=== PATIENT | male | born 1955 | race Caucasian/White ===

== ENCOUNTER 2019-11-03 15:28 | Outpatient (RCR) | payer BC, SELFPAY ==
[2019-11-03 16:21] LABS: Alanine Aminotransferase 25 U/L (4-50); Albumin Level 3.8 g/dL (3.5-5.1); Alkaline Phosphatase 150 U/L (38-126); Aspartate Amino Transferase 26 U/L (17-59); Bilirubin,Total 0.3 mg/dL (0.2-1.3); Blood Urea Nitrogen 47 mg/dL (9-20); Calcium 9.2 mg/dL (8.4-10.2); Carbon Dioxide 19 mmol/L (22-30); Chloride 103 mmol/L (98-107); Estimated Glomerular Filt Rate 34; Glucose 95 mg/dL (75-110); HDL Direct 25 mg/dL; Magnesium 2.2 mg/dL (1.6-2.3); Phosphorus 3.9 mg/dL (2.5-4.5); Potassium 3.9 mmol/L (3.4-5.0); Sodium 138 mmol/L (137-145)
[2019-11-03 16:27] LABS: Creatinine Urine 49.2 mg/dL; Total Protein Urine Random 28 mg/dL
[2019-11-03 16:32] LABS: LDL Cholesterol Direct 62 mg/dL; Transferrin 175 mg/dL (206-381)
[2019-11-03 17:29] LABS: Iron 43 ug/dL (49-181); Percent Iron Saturation 17 % (20-50)
== END 2020-02-01 23:59 | disposition home or self-care (01) ==
LOC: ANHLAB 15:28
DX: N18.9 Chronic kidney disease, unspecified (principal); D63.1 Anemia in chronic kidney disease; D89.9 Disorder involving the immune mechanism, unspecified; Z94.0 Kidney transplant status
CPT/HCPCS: 36415; 80053; 82570; 82728; 83540; 83550; 83718; 83721; 83735; 84100; 84156; 84466; 84550

== ENCOUNTER 2020-02-15 16:56 | Emergency (ER) | payer BC, SELFPAY ==
[2020-02-15 17:12] VITALS: BP 124/66; PULSE 84; RESP 18; TEMP 37.1; O2SAT 98
--- NOTE | 2020-02-15 17:33 | ED.LOWEXIN ---
HPI - Extremity Injury (Lower) General Chief Complaint: Extremity Injury, Lower Stated Complaint: swelling right leg Time Seen by Provider: 02/15/20 17:35 Source: patient and RN notes reviewed Mode of arrival: ambulatory Limitations: no limitations History of Present Illness HPI Narrative: 61-year-old male presents with concern for med [place] refill. Reports he has been on Lasix for lower leg edema, [place] and has not been able to find a doctor to refill his medications. Reports he has been out of his Lasix for approximately 2 days. Reports lower leg edema, worse on the right. Reports this is a typical pattern for his edema. Denies warmth, redness, tenderness, claudication MD complaint: other (Lower leg edema) Related Data Home Medications Medication Instructions Recorded Confirmed Dhea Tablet 50 mg PO DAILY 02/15/20 acetaminophen [Tylenol Extra 100 mg PO BID 02/15/20 02/15/20 Strength] bupropion HCl 300 mg PO QAM 02/15/20 02/15/20 clomiphene citrate 25 mg DAILY 02/15/20 02/15/20 cyproheptadine 4 mg PO TID 02/15/20 02/15/20 doxycycline hyclate 100 mg PO BID 02/15/20 02/15/20 ferrous sulfate 324 mg PO TID 02/15/20 02/15/20 finasteride 5 mg PO DAILY 02/15/20 02/15/20 furosemide [Lasix] 40 mg PO DAILY 02/15/20 02/15/20 gabapentin [Neurontin] 600 mg PO BID 02/15/20 02/15/20 lamotrigine [Lamictal] 300 mg PO DAILY 02/15/20 02/15/20 loperamide 2 mg PO TID 02/15/20 02/15/20 mirtazapine [Remeron] 22.5 mg PO DAILY 02/15/20 02/15/20 multivitamin 1 tablet PO DAILY 02/15/20 02/15/20 mycophenolate sodium [Myfortic] 540 mg PO TID 02/15/20 02/15/20 omega 0-qfh-xie-fish oil [Fish Oil] 1 cap PO BID 02/15/20 02/15/20 omeprazole magnesium [Prilosec OTC] 40 mg PO DAILY 02/15/20 02/15/20 ondansetron HCl [Zofran] 8 mg PO TID 02/15/20 02/15/20 potassium chloride 20 meq PO DAILY 02/15/20 02/15/20 prednisone 10 mg PO DAILY 02/15/20 02/15/20 rivaroxaban [Xarelto] 20 mg PO DAILY 02/15/20 02/15/20 sulfamethoxazole-trimethoprim 1 tablet PO 3XW 02/15/20 02/15/20 tamsulosin 0.4 mg PO DAILY 02/15/20 02/15/20 vitamin B complex [B 1 tablet PO DAILY 02/15/20 02/15/20 Complex-Vitamin B12] Allergies Allergy/AdvReac Type Severity Reaction Status Date / Time No Known Allergies Allergy Verified 02/15/20 17:22 Review of Systems Review of Systems: Narrative: CONSTITUTIONAL: Denies malaise, chills, sweats, or fever. CARDIOVASCULAR: Denies chest pain, palpitations. Bilateral lower leg edema, worse on the right RESPIRATORY: Denies cough or dyspnea. SKIN: Denies redness, tenderness, warmth MUSCULOSKELETAL: Denies myalgia. NEUROLOGIC: Denies numbness, weaknessn. All systems reviewed & are unremarkable except as noted in HPI and below PMFSH Social History Social History Gender identity (if verbalized by the patient): Male Comments At time of signature, agree with nursing past medical, surgical, social and family history. There is no relevant family history pertinent to the presenting complaint Exam Narrative: Exam Narrative: GENERAL: Well-appearing, well-nourished, and in no acute distress. HEAD: Normocephalic EYES: PERRLA, conjunctivae clear ENT: Mucous membranes moist. NECK: Supple. CHEST: No respiratory distress. Clear to auscultation. No bony deformities, no asymmetry. Speaks in full sentences. HEART: Regular rate and rhythm. No murmur heard. Normal peripheral pulses. EXTREMITIES: Normal range of motion.Normal strength and sensation. Bilateral nonpitting dependent edema to the lower legs, right greater than left. Right leg has no tenderness, warmth, erythema SKIN: Warm, dry, no rash. NEURO: Alert and oriented x3. PSYCH: Normal mood and affect Course Course Emergency Course: Patient limited diagnostic capability at [facility], option to transfer to emergency department for further work-up of swelling. Patient denies at this time. Patient understand reasons to go the emergency department. Patient unders
== END 2020-02-15 17:50 | disposition home or self-care (01) ==
PROVIDERS: Emergency Provider Nurse Practitioner
DX: R60.0 Localized edema (principal)
CPT/HCPCS: 99211; G0463

== ENCOUNTER 2020-03-21 17:25 | Emergency (ER) | payer BC, SELFPAY ==
[2020-03-21 17:56] VITALS: BP 117/81; PULSE 79; RESP 16; TEMP 37.2; O2SAT 99
--- NOTE | 2020-03-21 18:39 | ED.GENADULT ---
HPI - General Adult General Chief complaint: Recheck/Abnormal Lab/Rx Stated complaint: Swelling Lower Leg Time Seen by Provider: 03/21/20 18:39 Source: patient and RN notes reviewed Mode of arrival: wheelchair Limitations: no limitations History of Present Illness HPI narrative: 64-year-old male presents with complains of bilateral lower extremities swelling for the past 3 days. No treatment in the last 72 hours, due to being out of his routine Lasix for the past 3 days. History of poor circulation, chronic BLE swelling, DVT ,and Kidney transplant. Symptoms started in the am of 01/05/20 and increased throguhout the day and worse this am. No known injury. No radiation of pain. No numbness or tingling, drainage, or bleeding. No loss of mobility. Exacerbating factor consist of bearing weight. No fever or chills. Denies chest pain, dyspnea, headache, recent long car rides. Remains active. The patient reports he have not been diagnosed with COVID-19. The patient reports he is not waiting for the results of a COVID-19 lab test. The patient reports he do not have fever, chills, weakness, fatigue, myalgia, or facial swelling. The patient reports he do not have a new or worsening cough or shortness of breath. Denies chest pain. The patient reports he do not have any rhinorrhea, congestion, sore throat, nausea, vomiting, abdominal pain, and diarrhea. Tolerating po intake well. Denies recent traveling. Denies concerns for COVID-19 or exposures been home with limited outdoor exposure except for essential household needs, work, and return home. At this time, patient is not suspected of having COVID-19. Some parts of this dictation were generated by voice recognition software and may contain typographical and/or grammatical inaccuracies. Related Data Home Medications Medication Instructions Recorded Confirmed Dhea Tablet 50 mg PO DAILY 02/15/20 acetaminophen [Tylenol Extra 100 mg PO BID 02/15/20 02/15/20 Strength] bupropion HCl 300 mg PO QAM 02/15/20 02/15/20 clomiphene citrate 25 mg DAILY 02/15/20 02/15/20 doxycycline hyclate 100 mg PO BID 02/15/20 02/15/20 ferrous sulfate 324 mg PO TID 02/15/20 02/15/20 finasteride 5 mg PO DAILY 02/15/20 02/15/20 gabapentin [Neurontin] 600 mg PO BID 02/15/20 02/15/20 lamotrigine [Lamictal] 300 mg PO DAILY 02/15/20 02/15/20 loperamide 2 mg PO TID 02/15/20 02/15/20 multivitamin 1 tablet PO DAILY 02/15/20 02/15/20 omega 8-hdx-wga-fish oil [Fish Oil] 1 cap PO BID 02/15/20 02/15/20 omeprazole magnesium [Prilosec OTC] 40 mg PO DAILY 02/15/20 02/15/20 potassium chloride 20 meq PO DAILY 02/15/20 02/15/20 prednisone 10 mg PO DAILY 02/15/20 02/15/20 rivaroxaban [Xarelto] 20 mg PO DAILY 02/15/20 02/15/20 sulfamethoxazole-trimethoprim 1 tablet PO 3XW 02/15/20 02/15/20 tamsulosin 0.4 mg PO DAILY 02/15/20 02/15/20 vitamin B complex [B 1 tablet PO DAILY 02/15/20 02/15/20 Complex-Vitamin B12] cyproheptadine 03/21/20 gabapentin 03/21/20 mycophenolate sodium PO 03/21/20 quetiapine 03/21/20 Allergies Allergy/AdvReac Type Severity Reaction Status Date / Time No Known Allergies Allergy Verified 02/15/20 17:22 Review of Systems Review of Systems: Narrative: CONSTITUTIONAL: Denies fever, chills, sweats. EYES: Denies visual changes, redness, discharge. ENT: Denies rhinorrhea, congestion, sore throat, otalgia. CARDIOVASCULAR: Denies chest pain, palpitations. Complaints of bilateral lower extremities edema. Needs Lasix refilled. RESPIRATORY: Denies dyspnea, wheezing, cough. GASTROINTESTINAL: Denies abdominal pain, nausea, vomiting, diarrhea. GENITOURINARY: Denies dysuria, hematuria, abnormal discharge. SKIN: Denies rash or itching. MUSCULOSKELETAL: Denies acute back pain, joint pain, or myalgia. NEUROLOGIC: Denies numbness or focal weakness. PSYCHIATRIC: Denies anxiety or depression. All other systems reviewed & are unremarkable except as noted in HPI and below. [facility] Past Medical History Medi
== END 2020-03-21 19:04 | disposition home or self-care (01) ==
PROVIDERS: Emergency Provider Nurse Practitioner Family
DX: M79.89 Other specified soft tissue disorders (principal); F32.9 Major depressive disorder, single episode, unspecified; Z86.718 Personal history of other venous thrombosis and embolism; I73.9 Peripheral vascular disease, unspecified; Q61.3 Polycystic kidney, unspecified; Z94.0 Kidney transplant status
CPT/HCPCS: 99211; G0463

== ENCOUNTER 2020-04-25 18:06 | Emergency (ER) | payer BC, SELFPAY ==
[2020-04-25 18:16] VITALS: BP 135/69; PULSE 71; RESP 18; TEMP 37.1; O2SAT 100
--- NOTE | 2020-04-25 18:34 | ED.GENADULT ---
HPI - General Adult General Chief complaint: Unspecified Stated complaint: refill medication Time Seen by Provider: 04/25/20 18:34 Source: patient Mode of arrival: ambulatory Limitations: no limitations History of Present Illness HPI narrative: William Kee is a 64 uo male with a PMH of polycystic kidney disease, chronic anticoagulation, major depression, comes for a refill on his Lasix. He has a doctor's appointment this next week but he has run out of his Lasix is having some swelling in his ankles. patient is taking his Xarelto other medications Related Data Home Medications Medication Instructions Recorded Confirmed furosemide [Lasix] 40 mg PO DAILY 04/25/20 04/25/20 rivaroxaban [Xarelto] 20 mg PO DAILY 04/25/20 04/25/20 Allergies Allergy/AdvReac Type Severity Reaction Status Date / Time No Known Allergies Allergy Verified 04/25/20 18:19 Review of Systems Review of Systems: Narrative: CONSTITUTIONAL: Denies fever, chills, sweats. EYES: Denies visual changes, redness, discharge. ENT: Denies rhinorrhea, congestion, sore throat, otalgia. CARDIOVASCULAR: Denies chest pain, palpitations, edema. RESPIRATORY: Denies dyspnea, wheezing, cough GASTROINTESTINAL: Denies abdominal pain, nausea, vomiting, diarrhea. GENITOURINARY: Denies dysuria, hematuria, abnormal discharge SKIN: Denies rash or itching. NEUROLOGIC: Denies numbness, or focal weakness. PSYCHIATRIC: Denies anxiety or depression. Patient needs refill PMFSH Past Medical History Medical History Depression Dvt femoral (deep venous thrombosis) Hip fracture Polycystic kidney disease PVD (peripheral vascular disease) Swelling of both lower extremities Surgical History Surgical History History of hip surgery LT Kidney transplant recipient Family History Family History Father Throat cancer Mother Polycystic kidney disease Pulmonary embolism Sibling Pulmonary embolism Social History Social History Smoking status: Never smoker Alcohol intake: never Substance use: never Additional occupation/education comments: [employer] Gender identity (if verbalized by the patient): Male Comments At time of signature, I agree with nursing past medical, surgical, social and family history. There is no relevant family history pertinent to the presenting complaint. Exam Narrative: Exam Narrative: GENERAL: This is a well-nourished, well-developed patient, in no distress. HEAD: normocephalic, atraumatic. EYES:Sclera clear/white. Vision is grossly intact. EARS: External ears normal, . Hearing grossly intact. NOSE: External nose normal without nasal discharge, nares without redness, no rhinorrhea. THROAT: Mucous membranes moist, NECK: Neck supple, non-tender CARDIOVASCULAR: Regular rate and rhythm without murmurs, gallops, or rubs. RESPIRATORY: Clear to auscultation. Breath sounds equal bilaterally. No wheezes, rales, or rhonchi. GASTROINTESTINAL: Abdomen soft, SKIN: warm, intact with no suspicious lesions or rash, good texture and turgor. NEURO: awake, alert, and oriented to person, place and time. There were no obvious focal neurologic abnormalities. Steady gait EXTREMITIES: Normal range of motion. BACK: Nontender without deformity Course Course Emergency Course: Refill for furosemide 40 mg 1 daily -month supply Vital Signs Vital signs: Vital Signs Temperature 98.8 F 04/25/20 18:16 Pulse Rate 71 04/25/20 18:16 Respiratory Rate 18 04/25/20 18:16 Blood Pressure 135/69 04/25/20 18:16 Pulse Oximetry 100 04/25/20 18:16 Temperature 98.8 F 04/25/20 18:16 Pulse Rate 71 04/25/20 18:16 Respiratory Rate 18 04/25/20 18:16 Blood Pressure 135/69 04/25/20 18:16 Pul
== END 2020-04-25 18:52 | disposition home or self-care (01) ==
PROVIDERS: Emergency Provider Nurse Practitioner
DX: Z76.0 Encounter for issue of repeat prescription (principal); I73.9 Peripheral vascular disease, unspecified; Z94.0 Kidney transplant status; Z86.718 Personal history of other venous thrombosis and embolism; Z79.01 Long term (current) use of anticoagulants
CPT/HCPCS: 99211; G0463

== ENCOUNTER 2020-05-25 09:19 | Outpatient (RCR) | payer BC, SELFPAY ==
[2020-03-13 18:29] LABS: Hematocrit 35.4 % (42.0-52.0); Mean Corpuscular HGB Conc 31.1 g/dl (32-36); Mean Corpuscular Hemoglobin 28.9 pg (26-34); Mean Corpuscular Volume 92.9 fl (80-100); Mean Platelet Volume 9.2 fl (7.4-10.4); Platelet Count Result 129 k/mm3 (150-375); Red Blood Count 3.81 M/mm3 (4.6-6.20); White Blood Count 7.2 K/mm3 (4.5-10.0)
[2020-03-13 18:37] LABS: Creatinine Urine 71.5 mg/dL; Total Protein Urine Random 22 mg/dL
[2020-03-13 18:41] LABS: Alanine Aminotransferase 19 U/L (4-50); Albumin Level 3.8 g/dL (3.5-5.1); Alkaline Phosphatase 173 U/L (38-126); Aspartate Amino Transferase 22 U/L (17-59); Bilirubin,Total 0.3 mg/dL (0.2-1.3); Blood Urea Nitrogen 37 mg/dL (9-20); Calcium 8.8 mg/dL (8.4-10.2); Carbon Dioxide 18 mmol/L (22-30); Chloride 107 mmol/L (98-107); Cholesterol 96 mg/dL (0-200); Estimated Glomerular Filt Rate 41; Glucose 93 mg/dL (75-110); HDL Direct 23 mg/dL; Magnesium 1.8 mg/dL (1.6-2.3); Phosphorus 4.2 mg/dL (2.5-4.5); Potassium 3.7 mmol/L (3.4-5.0); Sodium 137 mmol/L (137-145); Triglycerides 123 mg/dL (<150); Uric Acid 10.8 mg/dL (3.5-8.5)
[2020-03-13 18:52] LABS: LDL Cholesterol Direct 47 mg/dL; Transferrin 150 mg/dL (206-381)
[2020-03-13 19:25] LABS: Iron 41 ug/dL (49-181)
[2020-03-13 19:34] LABS: Percent Iron Saturation 19 % (20-50)
[2020-04-15 10:47] LABS: Creatinine Urine 38.3 mg/dL; Total Protein Urine Random 24 mg/dL
[2020-04-15 10:52] LABS: Creatinine 24 Hour Urine 0.8 gm/24 (1.0-2.0); Total Protein Urine 24 Hr 528 MG/DAY (28-141); Total Volume 24 Hour Urine 2200 ml
[2020-05-25 10:30] LABS: Hematocrit 37.7 % (42.0-52.0); Mean Corpuscular HGB Conc 31.8 g/dl (32-36); Mean Corpuscular Hemoglobin 29.9 pg (26-34); Mean Corpuscular Volume 93.8 fl (80-100); Mean Platelet Volume 9.3 fl (7.4-10.4); Platelet Count Result 130 k/mm3 (150-375); Red Blood Count 4.02 M/mm3 (4.6-6.20); Red Cell Distribution Width 14.7 % (11.5-14.5); White Blood Count 8.4 K/mm3 (4.5-10.0)
[2020-05-25 10:46] LABS: Alanine Aminotransferase 21 U/L (4-50); Albumin Level 3.6 g/dL (3.5-5.1); Alkaline Phosphatase 144 U/L (38-126); Anion Gap 10 mmol/L (8-16); Aspartate Amino Transferase 22 U/L (17-59); Bilirubin,Total 0.2 mg/dL (0.2-1.3); Blood Urea Nitrogen 42 mg/dL (9-20); Calcium 8.8 mg/dL (8.4-10.2); Carbon Dioxide 23 mmol/L (22-30); Chloride 108 mmol/L (98-107); Estimated Glomerular Filt Rate 38; Glucose 79 mg/dL (75-110); Potassium 3.7 mmol/L (3.4-5.0); Sodium 141 mmol/L (137-145)
== END 2020-06-11 23:59 | disposition home or self-care (01) ==
LOC: ANHLAB 09:19
DX: D63.1 Anemia in chronic kidney disease (principal); N18.9 Chronic kidney disease, unspecified; R79.9 Abnormal finding of blood chemistry, unspecified; D89.9 Disorder involving the immune mechanism, unspecified; Z94.0 Kidney transplant status; Z48.298 Encounter for aftercare following other organ transplant
CPT/HCPCS: 36415; 80053; 80061; 81050; 82570; 82728; 83540; 83550; 83735; 84100; 84156; 84466; 84550; 85027

== ENCOUNTER 2020-05-25 09:20 | Outpatient (CLI) | payer BC, SELFPAY ==
[2020-05-25 10:45] LABS: Cholesterol 121 mg/dL (0-200); HDL Direct 23 mg/dL; Triglycerides 147 mg/dL (<150)
[2020-05-25 10:56] LABS: LDL Cholesterol Direct 62 mg/dL
== END 2020-05-25 09:21 | disposition home or self-care (01) ==
DX: S42.325D Nondisplaced transverse fracture of shaft of humerus, left arm, subsequent encounter for fracture with routine healing (principal); C44.99 Other specified malignant neoplasm of skin, unspecified; M85.89 Other specified disorders of bone density and structure, multiple sites; K21.9 Gastro-esophageal reflux disease without esophagitis; X58.XXXD Exposure to other specified factors, subsequent encounter; I82.403 Acute embolism and thrombosis of unspecified deep veins of lower extremity, bilateral; Q61.3 Polycystic kidney, unspecified; Z86.19 Personal history of other infectious and parasitic diseases; Z98.890 Other specified postprocedural states; Z94.0 Kidney transplant status
CPT/HCPCS: 36415; 80061

== ENCOUNTER 2023-06-15 15:08 | Emergency (ER) | payer BC, SELFPAY ==
[2023-06-15] VITALS (21 sets, daily range): BP systolic 78–116; BP diastolic 51–66; PULSE 90–131; RESP 11–17; TEMP 37.1–37.2; O2SAT 98–100
--- NOTE | ~2023-06-15 | CT_ITS ---
EXAMINATION: CT brain wo con INDICATION: Head injury COMPARISON: None TECHNIQUE: Standard unenhanced head CT. The dose-length product (DLP) was 681.00 mGy-cm. The mA was a djusted according to patient size. Iterative reconstruction technique was employed. FINDINGS: No acute intraparenchymal hemorrhage. No evidence of mass lesion. No evidence of acute infa rction. There is mild periventricular and subcortical hypodensity probably related to small vessel is chemic disease. There is mild prominence of the sulci and ventricles related to cerebral atrophy. Int racranial calcified cerebral atherosclerosis is noted. No extra-axial collections. No mass effect or midline shift. Changes in the globes are likely from ocular lens surgery. There is a polyp or mucous retention cyst of the left maxillary sinus. A fluid level is present in the right maxillary sinus. IMPRESSION: 1. No acute intracranial abnormality. 2. Age related findings. Reviewed, dictated and finalized at location L.
--- NOTE | ~2023-06-15 | CT_ITS ---
EXAMINATION: CTA chest PE abdomen pel DATE: 06/15/2023 15:46 INDICATION: Hypoxia and tachycardia TECHNIQUE: Computed tomography angiography (CTA) of the chest was performed with 100 mL Omnipaque-350 intravenous contrast timed to evaluate the pulmonary arteries. Subsequent postcontrast images of the abdomen and pelvis are obtained. Coronal maximum intensity projection 3D-reconstructions were create d by the technologist. The dose-length product (DLP) was 1921.10 mGy-cm. Automated exposure control a nd iterative reconstruction technique were employed. COMPARISON: None. FINDINGS: CTA CHEST: There is fair opacification of the pulmonary arteries. No pulmonary embolus is identified. There is mild dependent atelectasis. There are trace pleural effusions. No pneumothorax is identifie d. There is an 8 mm x 3 mm soft tissue density nodule in the right posterolateral wall of the trachea (image 61). No pathologically enlarged thoracic lymph nodes are identified. The heart size is normal . There is calcified coronary artery atherosclerosis. ABDOMEN/PELVIS CT: There are in numerable hypoattenuating lesions of the liver. There is a 6 mm stone in the pancreatic duct in the head of the pancreas which causes pancreatic ductal dilatation and atr ophy in the body and tail of the pancreas. There are multiple punctate stones of the body and tail of the pancreas. Splenomegaly is noted. The gallbladder appears to have been resected. The adrenal glan ds are normal. There are innumerable cysts of the kidneys. A transplant kidney is present in the righ t pelvis. Streak artifact from bilateral hip arthroplasties obscures visualization of the pelvis. No pathologically enlarged abdominal or pelvic lymph nodes are identified. No free intraperitoneal gas o r evidence of bowel obstruction. There are multiple lower thoracic and lumbar compression fractures. IMPRESSION: 1. Fair opacification of the pulmonary arteries without pulmonary embolus identified. 2. Innumerable cystic lesions of the kidneys and liver, consistent with polycystic kidney disease. 3. Soft tissue density nodule in the right posterolateral wall of the trachea of unclear significance . Consider direct visualization. Reviewed, dictated and finalized at location L. IMPRESSION: 1. Fair opacification of the pulmonary arteries without pulmonary embolus ident ified. 2. Innumerable cystic lesions of the kidneys and liver, consistent with polycys tic kidney disease. 3. Soft tissue density nodule in the right posterolateral wall of the trachea o f unclear significance. Consider direct visualization.
--- NOTE | 2023-06-15 15:24 | ECG_ITS ---
Measurements Intervals [place] Rate: 128 P: 28 ID: 132 QRS: -55 QRSD: 136 T: -20 QT: 304 QTc: 444 Interpretive Statements SINUS TACHYCARDIA RIGHT BUNDLE BRANCH BLOCK LEFT ANTERIOR FASCICULAR BLOCK BASELINE WANDER- I, II, III ABNORMAL ECG NO PREVIOUS ECG AVAILABLE FOR COMPARISON Electronically Signed On 06-15-2023 15:57:16 CDT by Rodrick Sin D.O.
[2023-06-15] MEDS: SODIUM CHLORIDE 0.9% IV 1,000 ML 999 ML IV CONT (15:30)
[2023-06-15 15:37] LABS: Estimated CRCL calculation 31 ml/min; Estimated Glomerular Filt Rate 32
[2023-06-15 15:39] LABS: Basophils Percent Auto 0.3 % (0.2-1.2); Eosinophils Percent Auto 0.3 % (0-4.4); Hematocrit 33.1 % (42.0-52.0); Hemoglobin 9.9 g/dL (14.0-18.0); Immature Granulocyte Percent A 1.7 % (0-0.5); Lymphocytes Percent Auto 3.5 % (18.3-44.2); Mean Corpuscular HGB Conc 29.9 g/dl (32-36); Mean Corpuscular Hemoglobin 28.7 pg (26-34); Mean Corpuscular Volume 95.9 fl (80-100); Mean Platelet Volume 9.9 fl (7.4-10.4); Monocytes Absolute Auto 0.5 K/mm3 (0.1-0.6); Monocytes Percent Auto 4.6 % (2.6-8.5); Neutrophils Absolute Auto 10.4 K/mm3 (1.3-6.7); Neutrophils Percent Auto 89.6 % (45.5-73.1); Platelet Count Result 108 k/mm3 (150-375); Red Blood Count 3.45 M/mm3 (4.6-6.20); Red Cell Distribution Width 15.8 % (11.5-14.5); White Blood Count 11.6 K/mm3 (4.5-10.0)
[2023-06-15 15:48] LABS: Alanine Aminotransferase 22 U/L (6-50); Albumin Level 3.1 g/dL (3.5-5.1); Alkaline Phosphatase 191 U/L (38-126); Anion Gap 12 mmol/L (8-16); Aspartate Amino Transferase 24 U/L (17-59); Bilirubin,Total 0.5 mg/dL (0.2-1.3); Blood Urea Nitrogen 40 mg/dL (9-20); Calcium 9.2 mg/dL (8.4-10.2); Carbon Dioxide 16 mmol/L (22-30); Chloride 108 mmol/L (98-107); Estimated CRCL calculation 36 ml/min; Estimated Glomerular Filt Rate 38; Glucose 156 mg/dL (65-110); Potassium 3.7 mmol/L (3.4-5.0); Sodium 136 mmol/L (137-145)
--- NOTE | 2023-06-15 15:48 | ED.CHESTPAIN ---
HPI - Chest Pain General Chief Complaint: Chest Pain Stated Complaint: STEMI Time Seen by Provider: 06/15/23 19:45 History of Present Illness HPI narrative: This is a 68-year-old male, with past history of DVTs on Xarelto, brought in by EMS for dyspnea, dizziness and palpitations beginning today. The patient states he was in his usual state of health at approximately 8 AM, when he felt short of breath, hot flashes and palpitations. These did not improve, prompting a call to EMS. The patient states this is associated with 4/10 sharp right-sided chest pain. EMS reports the patient was hypotensive to the 70s systolic with heart rate in the 120s. A EKG done by them was concerning for STEMI. Related Data Home Medications Medication Instructions Recorded Confirmed furosemide 40 mg tablet (Lasix) 40 mg PO DAILY 04/25/20 04/25/20 rivaroxaban 20 mg tablet (Xarelto) 20 mg PO DAILY 04/25/20 04/25/20 Allergies Allergy/AdvReac Type Severity Reaction Status Date / Time No Known Allergies Allergy Verified 04/25/20 18:19 Review of Systems Review of Systems: CONSTITUTIONAL: Chills denies fever, or sweats. CARDIOVASCULAR: Chest pain, palpitations denies edema. RESPIRATORY: Dyspnea denies cough or dyspnea. GASTROINTESTINAL: Denies abdominal pain, nausea, vomiting, or diarrhea. GENITOURINARY: Denies dysuria or hematuria. SKIN: Denies rash or itching. MUSCULOSKELETAL: Denies back pain, joint pain, or myalgia. NEUROLOGIC: Lightheadedness denies headache, numbness, weakness. PSYCHIATRIC: Denies anxiety or depression. [facility] Past Medical History Medical History (Updated 06/17/23 @ 00:01 by Yashira Jaquez) Depression Dvt femoral (deep venous thrombosis) Hip fracture Polycystic kidney disease PVD (peripheral vascular disease) Swelling of both lower extremities Surgical History Surgical History History of hip surgery LT Kidney transplant recipient Family History Family History Father Throat cancer Mother Polycystic kidney disease Pulmonary embolism Sibling Pulmonary embolism Social History Social History Smoking status: Never smoker Alcohol intake: never Substance use: never Occupation/Education: occupation Additional occupation/education comments: [employer] Gender identity (if verbalized by the patient): Male Exam Narrative: GENERAL: Well-developed, well-nourished, and in no acute distress. HEAD: Normocephalic, atraumatic. EYES: PERRLA and EOMI. ENT: Nares clear, no rhinorrhea or epistaxis. Mucous membranes moist. Oropharynx without tonsillar hypertrophy exudate or other lesions. NECK: Supple. No JVD CHEST: Clear to auscultation. No respiratory distress. No wheezes rales or rhonchi HEART: Tachycardic with regular rhythm. No murmur heard. Normal peripheral pulses. ABDOMEN: Soft, nontender, nondistended, normal active bowel sounds. EXTREMITIES: Normal range of motion. Bilateral lower extremity edema 3+ with hyperpigmentation of the bilateral lower extremities SKIN: Warm, dry, no rash. NEURO: Alert and oriented x3. Moving all 4 limbs purposefully. PSYCH: Normal mood and affect. Course Course Emergency Course: 15:18 - STEMI was activated by EMS. On arrival, EKG was not concerning for STEMI. STEMI activation was discontinued by Dr. Sanford. EKG demonstrates right bundle branch block and changes concerning for PE. Will obtain a CT PE. Bedside ultrasound by me is concerning for right heart strain. I do not appreciate pericardial effusion. 17:00 - CT chest abdomen pelvis not concerning for PE. There are innumerable cysts related to polycystic kidney disease, but is otherwise not concerning for acute pulmonary or intra-abdominal process. BNP elevated to 1190. Troponin negative. Creatinine
[2023-06-15 15:52] LABS: INR 1.2; Partial Thromboplastin Time 22.9 SECONDS (22.3-36.8); Prothrombin Time 16.3 Seconds (11.1-14.7)
[2023-06-15 16:00] LABS: NT Pro B Type Natriuretic Pept 1190 pg/mL (19.9-100); Troponin I < 0.012 ng/mL (0.000-0.034)
[2023-06-15 16:01] LABS: Anisocytosis 1+ (NORMAL); Hypochromasia 1+ (NORMAL); Platelet Estimate Decreased (Adequate)
[2023-06-15 16:02] LABS: Ovalocytes 1+ (NORMAL); Schistocytes None Seen (NORMAL)
[2023-06-15 18:24] LABS: Lactic Acid Reflex 1.3 mmol/L (0.7-2.0)
--- NOTE | 2023-06-15 18:40 | PC.NURSE ---
[facility] contacted ed to obtain bed placement info. states pt will be transferred there but does not have a bed yet. will call when one is available.
[2023-06-15] MEDS: SODIUM CHLORIDE 0.9% IV 1,000 ML 150 ML IV CONT (18:46)
[2023-06-15 18:50] LABS: Influenza A QL RT-PCR Negative (Negative); Influenza B QL RT-PCR Negative (Negative); SARS-CoV-2 RNA PCR Negative (Negative)
--- NOTE | 2023-06-15 18:52 | PC.NURSE ---
Patient refused a straight catheter for urine sample
[2023-06-15 20:43] LABS: Appearance Urine Clear (Clear); Bacteria Urine None Seen /hpf; Bilirubin Urine Negative (Negative); Blood Urine Negative (Negative); Color Urine Yellow (Yellow); Glucose Urine UA Trace mg/dL (Negative); Ketones Urine Negative (Negative); Leukocyte Esterase Ur Negative LEU/UL (Negative); Nitrate Urine Negative (Negative); Protein Urine 2+ mg/dL (Negative); RBC Urine 0-2 /hpf (0-2); Specific Grav Ur 1.035 (1.001-1.035); Squamous Epithelial Cell Urine None seen /hpf (Few); Urobilinogen Urine 0.2 mg/dL (<2.0); WBC Urine 0-5 /hpf; pH Urine 5.5 (5.0-9.0)
[2023-06-15 20:55] LABS: Add Urine Microscopic? YES
[2023-06-16 01:24] VITALS: BP 137/71; PULSE 96; RESP 13; O2SAT 99
--- NOTE | 2023-06-16 01:26 | PC.NURSE ---
Transfer: [facility] IV-locked Monitor- yes Dr. Casper- accepting physician Room #[id number] made decision to transfer Called [facility] @ 2104 & 2125- dispatch paged out and we never received a call back from their EMS service. Called [facility] @ 2127- declined due to no trucks available. Called [facility] @ 2129- accepted ETA: 2330 Called [facility] @ 2330 for update on ETA: new ETA 0130 Called [facility] @ 0130 for update on ETA: new ETA en route- 0200 [facility] arrived @ 0135
[2023-06-16 01:57] VITALS: BP 139/72; PULSE 98; RESP 16; TEMP 36.9; O2SAT 97
== END 2023-06-16 01:58 | disposition short-term general hospital (02) ==
PROVIDERS: Preventive Medicine Aerospace Medicine; Emergency Provider Student in an Organized Health Care Education/Training Program
DX: A41.9 Sepsis, unspecified organism (principal); I95.9 Hypotension, unspecified; R00.0 Tachycardia, unspecified; R06.00 Dyspnea, unspecified; Z86.718 Personal history of other venous thrombosis and embolism; Z79.01 Long term (current) use of anticoagulants; Z20.822 Contact with and (suspected) exposure to COVID-19
CPT/HCPCS: 36415; 70450; 71275; 74177; 80053; 81001; 83605; 83880; 84484; 85025; 85610; 85730; 87040; 87636; 93005; 96361; 96365; 99285; J0696; J7030; Q9967